=== PATIENT | female | born 1970 | race Hispanic/Latino ===

== ENCOUNTER 2017-12-04 08:23 | Day surgery (SDC) | payer MEDICAID ==
[2017-11-29 11:12] VITALS: BMI 28.3
--- NOTE | 2017-12-04 09:29 | CP.SDSHP ---
Same Day Surgery H & P - History Proposed Procedure: egd and colonoscopy Pre-Op Diagnosis: intractable nausea and vomiting, chronic constipation - Allergies Allergies: Allergies No Known Allergies Allergy (Verified 12/04/17 09:20) - Physical Exam General Appearance: no acute distress Vital Signs: Vital Signs 12/04/17 08:45 Pulse Rate 77 Respiratory 18 Rate Blood Pressure 116/63 O2 Sat by Pulse 98 Oximetry Mental Status: Alert & Oriented x3 Neuro: WNL Heart: WNL Lungs: WNL GI: WNL - {Optional Preform as Required} Abdomen: Other (nausea, and pain) Integument: WNL Ortho: WNL - Impression Impression: intractable nausea and vomiting, constipation Pt. Evaluated Today:Candidate for Anesthesia & Procedure: Yes - Date & Time Date: 12/04/17 Time: 09:00 Short Stay Discharge - Short Stay Discharge Admitting Diagnosis/Reason for Visit: G43.A0/K59.01 Disposition: HOME/ ROUTINE
[2017-12-04] MEDS ORDERED: Propofol 10 mg/ml Inj (20 ML) ONE (09:43)
[2017-12-04 10:44] VITALS: TEMP 98.2
[2017-12-04] MEDS ORDERED: Sodium Chloride 0.9% 1,000 ML IV SCH (10:45)
[2017-12-04 11:36] VITALS: BP 105/68; PULSE 68; RESP 16; O2SAT 99
== END 2017-12-04 12:03 | disposition home or self-care (01) ==
LOC: ENDO 08:23
PROVIDERS: ATTEND Internal Medicine Gastroenterology
DX: Z12.11 Encounter for screening for malignant neoplasm of colon (principal); K29.50 Unspecified chronic gastritis without bleeding; K64.8 Other hemorrhoids; K59.09 Other constipation; R11.2 Nausea with vomiting, unspecified
CPT/HCPCS: 43239; 45378; 84703; 88305; 88342; J2001; J2704; J7030; J7040